=== PATIENT | female | born 1955 ===

== ENCOUNTER 2017-01-18 03:03 | Emergency (ER) | payer OTHER ==
[~2017-01-18] VITALS: Ht 160 cm; Wt 104.3 kg
[~2017-01-18 03:03] MED LIST: ALLEGRA-D 12 H1 EACH PO; ENALAPRIL MALE2.5 MG PO; FLOVENT DISKUS50 MCG INH; HALFPRIN81 MG PO; HYDROCHLOROTHIA25 MG PO; KLOR-CON M2020 MEQ PO; MAGNESIUM500 MG PO; PREMARIN0.3 MG PO; PRILOSEC20 MG PO; SINGULAIR10 MG PO; TENORMIN25 MG PO; VITAMIN D250000 UNIT PO
== END 2017-01-18 04:45 | disposition short-term general hospital (02) ==
LOC: ER 03:03
DX: E87.6 Hypokalemia (principal); I49.3 Ventricular premature depolarization; K21.9 Gastro-esophageal reflux disease without esophagitis; I10 Essential (primary) hypertension; Z91.040 Latex allergy status; Z79.82 Long term (current) use of aspirin; Z79.899 Other long term (current) drug therapy